=== PATIENT | male | born 1995 | race Caucasian/White ===

== ENCOUNTER 2019-09-01 04:34 | Emergency (ER) | payer SELFPAY ==
[~2019-09-01] VITALS: Ht 177.8 cm; Wt 82.0 kg
[2019-09-01 04:51] VITALS: BP 150/87
== END 2019-09-01 07:06 | disposition left against medical advice (07) ==
LOC: ER 04:34
DX: T51.0X1A Toxic effect of ethanol, accidental (unintentional), initial encounter (principal); Z53.21 Procedure and treatment not carried out due to patient leaving prior to being seen by health care provider; Y92.89 Other specified places as the place of occurrence of the external cause